=== PATIENT | female | born 1985 | race Caucasian/White ===

== ENCOUNTER 2017-03-06 09:36 | Emergency (ER) | payer MEDICAID | END 2017-03-06 11:19 | disposition home or self-care (01) | LOC: D.ER 09:36 | DX: R56.9 Unspecified convulsions (principal); S09.90XA Unspecified injury of head, initial encounter; W19.XXXA Unspecified fall, initial encounter; Y93.89 Activity, other specified; Y92.89 Other specified places as the place of occurrence of the external cause; S16.1XXA Strain of muscle, fascia and tendon at neck level, initial encounter ==

== ENCOUNTER 2017-07-21 14:08 | Emergency (ER) | payer MEDICAID | END 2017-07-21 17:39 | disposition home or self-care (01) | LOC: D.ER 14:08 | DX: R56.9 Unspecified convulsions (principal); Z86.69 Personal history of other diseases of the nervous system and sense organs ==